=== PATIENT | female | born 1955 | race African-American/Black ===

== ENCOUNTER 2021-10-02 12:31 | Emergency (ER) | payer OTHER ==
[~2021-10-02] VITALS: Ht 160 cm; Wt 90.9 kg
[2021-10-02] MEDS ORDERED: DEXAMETHASONE SOD PHOS 20 MG/5 ML VIAL. IM ONE (13:45)
[2021-10-02] MEDS ORDERED: IBUPROFEN 100 MG/5 ML ORAL.SUSP. PO ONE (13:45)
[2021-10-02] MEDS ORDERED: PSEUDOEPHEDRINE 30 MG TABLET. PO PRN (13:45)
[2021-10-02] MEDS ORDERED: PSEU30TA77 PO (14:45)
--- NOTE | 2021-10-02 14:46 | PHYS DOC ---
Past Medical History Past Surgical History: No Surgical History (KYLAH LAZARO APRN) Smoking Status: Never Smoker Alcohol Use: None (KYLAH LAZARO APRN) General Adult EDM: Chief Complaint: SORE THROAT HPI: HPI: Patient is a 65-year-old female who presents to the emergency department complaining of sore throat since this past Wednesday. Patient also complains of bilateral ear fullness and discomfort. Patient denies fever or chills. Patient denies cough or chest congestion, denies chest pains. Patient denies other people in her home with the same symptoms that she. Patient reports trying [id number] Chloraseptic, Tylenol, NyQuil, and DayQuil with minimal relief. Patient reports receiving the COVID-19 virus vaccination series with booster. Reports a history of penicillin allergy. Takes amlodipine for high blood pressure. Denies other physical complaints or physical concerns. (KYLAH LAZARO APRN) Review of Systems: Review of Systems: 14 body systems of review of systems have been reviewed. See HPI for pertinent positives and negative responses, otherwise all other systems are negative, nonpertinent or noncontributory. Constitutional: Negative except as outlined in HPI above. Skin: Negative except as outlined in HPI above. Eyes: Negative except as outlined in HPI above. HENT: Negative except as outlined in HPI above. Respiratory: Negative except as outlined in HPI above. Cardiovascular: Negative except as outlined in HPI above. GI: Negative except as outlined in HPI above. : Negative except as outlined in HPI above. Musculoskeletal: Negative except as outlined in HPI above. Integument: Negative except as outlined in HPI above. Neurologic: Negative except as outlined in HPI above. Endocrine: Negative except as outlined in HPI above. Lymphatic: Negative except as outlined in HPI above. Psychiatric: Negative except as outlined in HPI above. (KYLAH LAZARO APRN) Heart Score: C/O Chest Pain: No Risk Factors: Risk Factors: DM, Current or recent (<one month) smoker, HTN, HLP, family history of CAD, obesity. Risk Scores: Score 0 - 3: 2.5% MACE over next 6 weeks - Discharge Home Score 4 - 6: 20.3% MACE over next 6 weeks - Admit for Clinical Observation Score 7 - 10: 72.7% MACE over next 6 weeks - Early Invasive Strategies (KYLAH LAZARO APRN) Current Medications: Current Medications Medications (Trade) Dose Ordered Sig/[place] Start Time Stop Time Status Last Admin Dose Admin Dexamethasone Sodium Phosphate (Decadron) 10 mg 1X ONCE 10/02/21 13:45 10/02/21 13:46 DC 10/02/21 13:45 10 MG Ibuprofen (Children'S Motrin) 600 mg 1X ONCE 10/02/21 13:45 10/02/21 13:46 DC 10/02/21 13:58 600 MG Pseudoephedrine HCl (Sudafed) 60 mg PRN Q6HRS PRN 10/02/21 13:45 10/02/21 14:00 60 MG (KYLAH LAZARO APRN) Allergies: Allergies: Allergies Uncoded Allergies Type Severity Reaction Last Updated Verified PENICILLIN Allergy Unknown 10/02/21 (KYLAH LAZARO APRN) Physical Exam: PE: Constitutional: Well developed, well nourished, no acute distress, non-toxic appearance. 65-year-old female in no apparent distress. HENT: Normocephalic, atraumatic. Oropharynx moist, erythematous bilateral tonsils without cobblestoning or exudative drainage, no postnasal drip, mild uvular edema without deviation, no laryngeal edema, patient speaking in normal voice tones, no drooling, no trismus, bilateral submental lymphadenopathy, no other lymphadenopathy of the head or neck appreciated. Bilateral TMs intact, not bulging, clear air-fluid levels noted, bony landmarks appreciated, no drainage from auditory canals. Eyes: Conjunctiva normal, no discharge. Neck: Normal range of motion, no stridor. No nuchal rigidity, no meningismus signs. Cardiovascular: No cyanosis appreciated, distal cap refill less than 2 seconds. Lungs & Thorax: Patient is in no respiratory distress, no audible adventitious lung sounds appreciated. Abdomen: Nontender, no abnormalities noted. Skin: Warm, dry, no erythema, no rash. Back: No tenderness, no deformities. Extremities: No tenderness, no cyanosis, no clubbing, ROM intact, no edema. Neurologic: Alert and oriented X 3, normal motor function, normal sensory f unction, no focal deficits noted. Psychologic: Affect normal, judgement normal, mood normal. (KYLAH LAZARO APRN) Current Patient Data: Labs: Current Medications Medications (Trade) Dose Ordered Sig/[place] Route PRN Reason Start Time Stop Time Status Last Admin Dose Admin Pseudoephedrine HCl (Sudafed) 60 mg PRN Q6HRS PRN PO NASAL CONGESTION 10/02/21 13:45 10/02/21 14:00 60 MG Ibuprofen (Children'S Motrin) 600 mg 1X ONCE PO 10/02/21 13:45 10/02/21 13:46 DC 10/02/21 13:58 600 MG Dexamethasone Sodium Phosphate (Decadron) 10 mg 1X ONCE IM 10/02/21 13:45 10/02/21 13:46 DC 10/02/21 13:45 10 MG Vital Signs: Vital Signs Date Time Temp Pulse Resp B/P (MAP) Pulse Ox O2 Delivery O2 Flow Rate FiO2 10/02/21 12:52 98.4 89 14 169/91 (117) 98 Room Air 98.4 (KYLAH LAZARO APRN) EKG: EKG: [] (KYLAH LAZARO APRN) Radiology/Procedures: Radiology/Procedures: [] (KYLAH LAZARO APRN) Course & Med Decision Making: Course & Med Decision Making Pertinent Labs and Imaging studies reviewed. (See chart for details) 65-year-old female, vital signs reviewed, presents emergency department concern ing sore throat for the past 5 days. Physical examination consistent with viral pharyngitis, will order strep test to rule out bacterial component. Will give 60 mg Sudafed p.o., 10 mg IM Decadron, 600 mg p.o. suspension ibuprofen for throat discomfort. Will reevaluate after rapid strep test results. Rapid strep test negative. Discussed with patient diagnosis of viral pharyngit is, use of [id number] decongestant such as Sudafed, suspension ibuprofen, anesthetic throat sprays, increase fluids, follow-up with primary care for reevaluation this week, return to ER precautions or concerns, patient gave verbal understanding of and is amenable to ED discharge planning. Discussed with the patient all findings and diagnostic testing as well as the need to follow-up with their primary care provider for further evaluation and treatment or return to the ED if any new or worsening symptoms. Strict return precautions were also discussed at length, the patient voiced understanding and agreement with the discharge planning. The patient was nontoxic in appearance, in no apparent distress, and hemodynamically stable at the time of disposition. (KYLAH LAZARO APRN) Dragon Disclaimer: Dragjamarcus Disclaimer: This electronic medical record was generated, in whole or in part, using a voice recognition dictation system. (KYLAH LAZARO APRN) Departure Departure Impression: Primary Impression: Pharyngitis Qualified Codes: J02.9 - Acute pharyngitis, unspecified Disposition: HOME / SELF CARE / HOMELESS Condition: GOOD Referrals: UNKNOWN PCP NAME (PCP) Patient Instructions: Viral and Bacterial Pharyngitis Additional Instructions: You were seen today in the emergency department for sore throat. A strep test performed today in the emergency department is negative for strep throat. Your physical examination is consistent with a viral pharyngitis throat infection. You were given 10 mg of Decadron intramuscular injection, 600 mg of children's suspension ibuprofen, and 60 mg of Sudafed today in the emergency department. As we discussed, this is most likely a viral throat infection and does not require antibiotics. This will run its course, the treatment focuses on relieving your sore throat symptoms. As we discussed, I am prescribing you Sudafed to use every 4-6 hours for congestion pressure, please consider using children's ibuprofen for throat discomfort, 600 mg 3 times a day over the next few days while the viral infection runs its course. Increase your fluid intake to help minimize symptoms. Consider using the red-colored throat spray as this seems to work well for temporary relief of throat discomfort, door this medication in the refrigerator as the added coolness aids and throat discomfort. Please follow-up with your primary care physician this next week for reevaluation of your symptoms. If you are unable to secure a timely appointment, I have attached a list of area physicians and clinics to your discharge document to consider using for primary care. Return to the emergency department for worsening symptoms or other concerns. Thank you for visiting our Emergency Department. It was a pleasure taking care of you today in the e mergency department and we appreciate you trusting us with your care. If any additional problems come up don't hesitate to return to visit us. Please follow up with your primary care provider so they can plan additional care if needed and know about the problem that you had. If symptoms worsen come back to the Emergency Department. Any concerning symptoms that start such as chest pain, shortness of air, weakness or numbness on one side of the body, running high fevers or any other concerning symptoms return to the ER. Scripts Pseudoephedrine Hcl (NEXAFED) 30 Mg Tablet 2 TAB PO PRN Q8HRS PRN for congestion, #60 TAB 0 Refills Prov: KYLAH LAZARO APRN 10/02/21 Attending Signature I have participated in the care of this patient and I have reviewed and agree with all pertinent clinical information above including history, exam, and recommendations. (PRITI SALOMON DO) KYLAH LAZARO APRN Oct 02, 2021 14:46 PRITI SALOMON DO Oct 02, 2021 14:53
[2021-10-02 14:50] VITALS: BP 141/87
== END 2021-10-02 14:50 | disposition home or self-care (01) ==
LOC: ER 12:31
DX: J02.9 Acute pharyngitis, unspecified (principal); H93.93 Unspecified disorder of ear, bilateral; Z88.0 Allergy status to penicillin
CPT/HCPCS: 87070; 87880; 96372; 99283; J1100